=== PATIENT | male | born 1990 | race Caucasian/White ===

== ENCOUNTER 2017-12-21 20:42 | Emergency (ER) | payer OTHER ==
[2017-12-21 20:53] VITALS: PULSE 88
--- NOTE | 2017-12-21 21:20 | ED PDOC ---
HPI: Chest Pain Time Seen by Provider: 12/21/17 20:56 Chief Complaint (Nursing): Chest Pain Chief Complaint (Provider): chest pain History Per: Patient History/Exam Limitations: no limitations Onset/Duration Of Symptoms: Days (2 weeks) Current Symptoms Are (Timing): Still Present Quality: "Pain" Exacerbating Factors: Turning, Movement Additional Complaint(s): 27 y/o male presents for evaluation of left-sided chest pain x 2 weeks. Patient reports pain radiates to left shoulder blade, worse to the touch. Patient also reports difficulty taking deep breaths. Denies fever, cough, congestion, nausea/vomiting, palpitations, leg pain/swelling, recent travel. Past Medical History Reviewed: Historical Data, Nursing Documentation, Vital Signs Vital Signs: Last Vital Signs Temp 98.5 F 12/21/17 20:53 Pulse 88 12/21/17 20:53 Resp 16 12/21/17 20:53 BP 166/100 H 12/21/17 20:53 Pulse Ox 98 12/21/17 21:20 - Medical History PMH: HTN (not on meds) - Family History Family History: States: Unknown Family Hx - Social History Current smoker - smoking cessation education provided: No Alcohol: Social Drugs: Denies - Home Medications Home Medications: Ambulatory Orders Medication Instructions Recorded Ibuprofen [Motrin] 600 mg PO Q6 PRN #10 tab 08/28/14 diaZEpam [Valium] 5 mg PO BID PRN #10 tab 08/28/14 Cephalexin [Keflex] 500 mg PO TID #21 cap 01/02/15 Albuterol HFA [Ventolin HFA 90 1 puff IH BID PRN #1 unit 05/09/15 mcg/actuation (8 g)] Ibuprofen [Motrin] 600 mg PO Q6H PRN #20 tab 09/05/15 Cyclobenzaprine [Cyclobenzaprine 10 mg PO BID PRN #10 tab 04/19/16 HCl] Naproxen [Naprosyn] 500 mg PO Q12 PRN #20 tablet 04/19/16 Naproxen [Naprosyn] 500 mg PO Q12 PRN #14 tablet 12/21/17 - Allergies Allergies/Adverse Reactions: Allergies Allergy/AdvReac Type Severity Reaction Status Date / Time sunlight Allergy Severe RASH Uncoded 04/19/16 18:04 Review of Systems ROS Statement: Except As Marked, All Systems Reviewed And Found Negative Cardiovascular: Positive for: Chest Pain Respiratory: Positive for: Shortness of Breath Physical Exam - Reviewed Nursing Documentation Reviewed: Yes Vital Signs Reviewed: Yes - Physical Exam Appears: Positive for: Well, Non-toxic, No Acute Distress Head Exam: Positive for: ATRAUMATIC, NORMAL INSPECTION, NORMOCEPHALIC Skin: Positive for: Normal Color Eye Exam: Positive for: Normal appearance ENT: Positive for: Normal ENT Inspection Cardiovascular/Chest: Positive for: Regular Rate, Rhythm. Negative for: Chest Non Tender (tender to palpate left anterior chest wall) Respiratory: Positive for: Normal Breath Sounds Gastrointestinal/Abdominal: Positive for: Normal Exam Back: Positive for: Normal Inspection, Muscle Spasm (medial to left scapula tenderness) Extremity: Positive for: Normal ROM Neurologic/Psych: Positive for: Alert, Oriented - Laboratory Results Result Diagrams: 12/21/17 21:49 12/21/17 21:49 - ECG ECG: Positive for: Viewed By Me (reviewed by ED attending) ECG Rhythm: Positive for: Sinus Rhythm, Nonspecific Changes O2 Sat by Pulse Oximetry: 98 - Radiology X-Ray: Viewed By Me X-Ray Interpretation: No Acute Disease - Progress ED Course And Treament: labs, ekg, chest xray, IV toradol' On re-eval, patient states symptoms improved Patient educated on findings, discharged with rx naproxen Advised follow up PMD 2-3 days. Return precautions given Disposition - Clinical Impression Clinical Impression: Atypical chest pain - Patient ED Disposition Is Patient to be Admitted: No Counseled Patient/Family Regarding: Studies Performed, Diagnosis, Need For Followup, Rx Given - Disposition Disposition: Routine/Home Disposition Time: 23:20 Condition: IMPROVED Prescriptions: Naproxen [Naprosyn] 500 mg PO Q12 PRN #14 tablet PRN Reason: Pain, Moderate (4-7) Instructions: Chest Pain Forms: [employer] (Yi)
[2017-12-21 21:58] LABS: BASO # 0.1 K/uL (0.0-0.2); BASO % 0.6 % (0.0-2.0); EOS # 0.3 K/uL (0.0-0.7); HEMOGLOBIN 14.5 g/dL (12.0-18.0); MEAN CELL VOLUME 88.8 fl (80.0-94.0); MEAN CORPUSCULAR HEMOGLOBIN 30.1 pg (27.0-31.0); MEAN CORPUSCULAR HGB CONC 33.9 g/dL (33.0-37.0); MEAN PLATELET VOLUME 10.3 fl (7.2-11.7); MONO # 0.7 K/uL (0.0-0.8); MONO % 6.9 % (0.0-10.0); NEUT # 5.6 K/uL (1.8-7.0); NEUT % 58.5 % (50.0-75.0); NRBC % 0.1 % (0.0-0.0); RBC 4.81 Mil/uL (4.40-5.90); RED CELL DISTRIBUTION WIDTH 13.5 % (11.5-14.5); WHITE BLOOD COUNT 9.6 K/uL (4.8-10.8)
[2017-12-21 22:24] LABS: ALB/GLOB RATIO 1.3 (1.0-2.1); ALBUMIN 4.3 g/dL (3.5-5.0); CALCIUM 9.1 mg/dL (8.4-10.2); GFR AFRICAN-AMERICAN > 60; GFR NON-AFRICAN AMERICAN > 60
[2017-12-21 23:10] LABS: ALT/SGPT 63 U/L (21-72); AST/SGOT 39 U/L (17-59); BLOOD UREA NITROGEN 13 mg/dl (9-20)
[2017-12-21 23:41] VITALS: BP 137/79; RESP 15; TEMP 98; O2SAT 100
--- NOTE | 2017-12-22 08:11 | RAD ---
HISTORY: Chest pain COMPARISON: 05/09/2015 TECHNIQUE: Chest PA and lateral FINDINGS: LUNGS: No active pulmonary disease. PLEURA: No significant pleural effusion identified. No pneumothorax apparent. CARDIOVASCULAR: Normal. OSSEOUS STRUCTURES: No significant abnormalities. VISUALIZED UPPER ABDOMEN: Normal. OTHER FINDINGS: None. IMPRESSION: No active disease. No significant interval change compared to the prior examination(s).
== END 2017-12-21 23:41 | disposition home or self-care (01) ==
LOC: H.ER 20:42
DX: R07.89 Other chest pain (principal); I10 Essential (primary) hypertension

== ENCOUNTER 2018-02-17 02:09 | Emergency (ER) | payer OTHER ==
[2018-02-17 02:18] VITALS: BP 164/109; PULSE 97; RESP 16; TEMP 99.6; O2SAT 99
--- NOTE | 2018-02-17 02:40 | ED PDOC ---
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 Denies any fevers, chills, trauma, injury, pain, swelling. Has no other complaints. Past Medical History Vital Signs: Last Vital Signs Temp 99.6 F 02/17/18 02:16 Pulse 97 H 02/17/18 02:16 Resp 16 02/17/18 02:16 BP 164/109 H 02/17/18 02:16 Pulse Ox 99 02/17/18 02:40 - Medical History PMH: HTN (not on meds) Denies: Chronic Kidney Disease - Family History Family History: States: Unknown Family Hx - Home Medications Home Medications: Ambulatory Orders Medication Instructions Recorded Ibuprofen [Motrin] 600 mg PO Q6 PRN #10 tab 08/28/14 diaZEpam [Valium] 5 mg PO BID PRN #10 tab 08/28/14 Cephalexin [Keflex] 500 mg PO TID #21 cap 01/02/15 Albuterol HFA [Ventolin HFA 90 1 puff IH BID PRN #1 unit 05/09/15 mcg/actuation (8 g)] Ibuprofen [Motrin] 600 mg PO Q6H PRN #20 tab 09/05/15 Cyclobenzaprine [Cyclobenzaprine 10 mg PO BID PRN #10 tab 04/19/16 HCl] Naproxen [Naprosyn] 500 mg PO Q12 PRN #20 tablet 04/19/16 Naproxen [Naprosyn] 500 mg PO Q12 PRN #14 tablet 12/21/17 Cetirizine HCl [Zyrtec] 10 mg PO DAILY #30 capsule 02/17/18 Hydrocortisone Sendy 0.2% Cr 1 applic TOP BID #1 tube 02/17/18 [Westcort] - Allergies Allergies/Adverse Reactions: Allergies Allergy/AdvReac Type Severity Reaction Status Date / Time sunlight Allergy Severe RASH Uncoded 04/19/16 18:04 Review of Systems Constitutional: Negative for: Fever, Malaise Musculoskeletal: Negative for: Neck Pain, Shoulder Pain, Arm Pain, Hand Pain Skin: Positive for: Other (insect bites). Negative for: Rash, Lesions Physical Exam - Reviewed Vital Signs Reviewed: Yes - Physical Exam Appears: Positive for: Well, Non-toxic, No Acute Distress Skin: Positive for: Normal Color, Warm, Dry. Negative for: Rash Pulses-Radial (R): 2+ Extremity: Positive for: Normal ROM, Capillary Refill (<2sec), Other (+several insect bites to the volar aspect of the R forearm without evidence of infection) . Negative for: Tenderness, Deformity, Swelling - ECG O2 Sat by Pulse Oximetry: 99 Medical Decision Making Medical Decision Making: Patient instructed to follow-up with pmd or referral provided in 1-2 days without fail. Advised to take medication as prescribed. Return to the emergency room at any time for any new or worsening symptoms. Patient states he fully agrees with and understands discharge instructions. States that he agrees with the plan and disposition. Verbalized and repeated discharge instructions and plan. I have given the patient opportunity to ask any additional questions. Disposition - Clinical Impression Clinical Impression: Insect bite - Patient ED Disposition Is Patient to be Admitted: No Counseled Patient/Family Regarding: Diagnosis, Need For Followup, Rx Given - Disposition Referrals: Juan Hernández MD [Staff Provider] - Disposition: Routine/Home Disposition Time: 02:30 Condition: STABLE Additional Instructions: Thank you for letting us take care of you today. You were treated for insect bites. The emergency medical care you received today was directed towards the acute presenting symptoms. If you were prescribed any medication, please fill it and give as directed. It may take several days for your symptoms to resolve. Return to the Emergency Department at any time if symptoms worsen, do not improve, or if any other problems arise. Please contact your doctor in 2 days for re-evaluation and follow up / or call one of the physicians/clinics you have been referred to that are listed on the Patient Visit Information form that is included in your discharge packet. Bring any paperwork you were given at discharge with you along with any medications to your follow up visit. Our treatment cannot replace ongoing medical care by a primary care provider (PCP) outside of the emergency department. Thank you for allowing the [facility] team to be part of your care today. Prescriptions: Cetirizine HCl [Zyrtec] 10 mg PO DAILY #30 capsule Hydrocortisone Sendy 0.2% Cr [Westcort] 1 applic TOP BID #1 tube Instructions: Insect Bites and Stings (DC) Forms: [employer] ([place] Citizen), [facility] ED School/Work Excuse - PA / CERTIFIED PATHOLOGY ASSISTANT / Resident Statement MD/DO has reviewed & agrees with the documentation as recorded.
== END 2018-02-17 02:46 | disposition home or self-care (01) ==
LOC: H.ER 02:09
DX: S50.861A Insect bite (nonvenomous) of right forearm, initial encounter (principal); W57.XXXA Bitten or stung by nonvenomous insect and other nonvenomous arthropods, initial encounter; I10 Essential (primary) hypertension

== ENCOUNTER 2018-03-09 01:30 | Inpatient (IN) | payer MEDICAID, OTHER ==
[2018-03-09] MEDS ORDERED: Iohexol 240 (50 ml) PO ONE (01:59)
[2018-03-09] MEDS ORDERED: Iohexol 240 (50 ml) ONE (02:07)
--- NOTE | 2018-03-09 02:15 | ED PDOC ---
HPI: Abdomen Time Seen by Provider: 03/09/18 01:52 Chief Complaint (Nursing): Abdominal Pain Chief Complaint (Provider): Abdominal Pain History Per: Patient Onset/Duration Of Symptoms: Days (x1) Current Symptoms Are (Timing): Still Present Location Of Pain/Discomfort: Diffuse Associated Symptoms: Fever. denies: Vomiting Additional Complaint(s): 27 y/o male with a PMHx of HTN and pre-diabetes presents to the ED complaining of abdominal pain, onset 1 day ago. Patient reports of taking laxatives and [id number] gas medication with no relief. Patient states abdominal pain is diffuse and associated with nausea and fever. Denies vomiting. PMD: [place]Amir Past Medical History Reviewed: Historical Data, Nursing Documentation, Vital Signs Vital Signs: Last Vital Signs Temp 100 F H 03/09/18 05:55 Pulse 99 H 03/09/18 06:31 Resp 17 03/09/18 06:31 BP 172/99 H 03/09/18 06:31 Pulse Ox 99 03/09/18 06:31 - Medical History PMH: Diabetes (pre), HTN (not on meds) Denies: Chronic Kidney Disease - Surgical History Surgical History: No Surg Hx - Family History Family History: States: Unknown Family Hx - Home Medications Home Medications: Ambulatory Orders Medication Instructions Recorded Unobtainable 03/09/18 - Allergies Allergies/Adverse Reactions: Allergies Allergy/AdvReac Type Severity Reaction Status Date / Time sunlight Allergy Severe RASH Uncoded 04/19/16 18:04 Review of Systems ROS Statement: Except As Marked, All Systems Reviewed And Found Negative Constitutional: Positive for: Fever Gastrointestinal: Positive for: Nausea, Abdominal Pain. Negative for: Vomiting Physical Exam - Reviewed Nursing Documentation Reviewed: Yes Vital Signs Reviewed: Yes - Physical Exam Appears: Positive for: Uncomfortable Head Exam: Positive for: ATRAUMATIC, NORMOCEPHALIC Skin: Positive for: Normal Color, Warm, Dry Eye Exam: Positive for: Conjunctival injection (bilaterally) Neck: Positive for: Normal, Painless ROM Cardiovascular/Chest: Positive for: Tachycardia Respiratory: Positive for: Normal Breath Sounds. Negative for: Respiratory Distress Gastrointestinal/Abdominal: Positive for: Normal Exam, Soft, Tenderness ( diffuse abdominal tenderenss) Extremity: Positive for: Normal ROM. Negative for: Deformity Neurologic/Psych: Positive for: Alert, Oriented. Negative for: Motor/Sensory Deficits - Laboratory Results Result Diagrams: 03/09/18 02:15 03/09/18 02:15 - ECG O2 Sat by Pulse Oximetry: 99 (RA) Pulse Ox Interpretation: Normal Medical Decision Making Medical Decision Making: Time: 218 Impression: 27 y/o male with abdominal pain Plan: -- CT Abd/Pelvis PO & IV Contrast -- CMP -- Lact Acid, Plasma -- Lipase -- CXR Portable -- Morphine 6 mg IVP -- Iohexol 50 ml PO -- Pepcid 20 mg IVP -- Zofran Inj 4 mg IVP -- Blood Culture -- Heplock Insertion -- Urinalysis Time: 050 CT RESULTS FINDINGS: Lung bases: There is a LEFT lung base subpleural nodule. ABDOMEN: Liver: There is a nonspecific 11 mm hyperdensity within the RIGHT hepatic lobe, incompletely evaluated on current exam. There is a diffuse decrease in hepatic parenchymal density, consistent with fatty infiltration. Gallbladder and bile ducts: The gallbladder is normal. There is no evidence of biliary ductal dilation. No calcified stones. Pancreas: The pancreas appears normal. No ductal dilation. Spleen: The spleen is normal. Adrenals: The adrenal glands are normal. Kidneys and ureters: Normal. No solid mass. No hydronephrosis. Stomach and bowel: There is thickening of the sigmoid colon with marked surrounding inflammatory stranding compatible with acute sigmoid diverticulitis. The stomach is normal. The duodenum is unremarkable. No obstruction. PELVIS: Appendix: No findings to suggest acute appendicitis. Bladder: The bladder is normal. Reproductive: Unremarkable as visualized. ABDOMEN and PELVIS: Intraperitoneal space: There is a small amount of free pelvic fluid present. No free air. Bones/joints: No acute fracture. No dislocation. Soft tissues: Normal. Vasculature: Normal. No abdominal aortic aneurysm. Lymph nodes: Normal. No enlarged lymph nodes. IMPRESSION: 1. There is thickening of the sigmoid colon with marked surrounding inflammatory stranding compatible with acute sigmoid diverticulitis. As an underlying malignancy cannot be entirely excluded, a follow-up examination after a course of treatment is recommended. 2. There is a nonspecific 11 mm hyperdensity within the RIGHT hepatic lobe, incompletely evaluated on current exam. This may represent a benign hemangioma however other etiologies are possible. Thank you for allowing us to participate in the care of your patient. Dictated and Authenticated by: Michael Rajan MD 03/09/2018 5:09 AM Eastern Time ([place] & [place]) Time: 522 -- Patient will be admitted with a diagnosis of acute diverticulitis. Patient referred to Dr. Peoples for Dr. Souza. Additional doses of Cipro and flagyl given for symptom relief. -- Cipro 400 in 200 ml IV -- Flagyl 500 mg/100 ml NS 100 ml IVPB Time: 608 -- Spoke with Dr. Peoples who is unavailable. Patient will be admitted under the hospitalist, Dr. Romano. ___ Scribe Attestation: Documented by Brett Aguillon acting as a scribe for Cristobal Hagan MD. Provider Scribe Attestation: All medical record entries made by the Scribe were at my direction and personally dictated by me. I have reviewed the chart and agree that the record accurately reflects my personal performance of the history, physical exam, medical decision making, and the department course for this patient. I have also personally directed, reviewed, and agree with the discharge instructions and disposition. Disposition - Clinical Impression Clinical Impression: Diverticulitis - Patient ED Disposition Is Patient to be Admitted: Yes Discussed With DrLawanda: Aston Romano Counseled Patient/Family Regarding: Studies Performed, Diagnosis - Disposition Disposition Time: 05:00 Condition: FAIR
[2018-03-09 02:28] LABS: BASO # 0.1 K/uL (0.0-0.2); BASO % 0.6 % (0.0-2.0); EOS # 0.3 K/uL (0.0-0.7); EOS % 1.8 % (0.0-4.0); HEMOGLOBIN 14.5 g/dL (12.0-18.0); LYMPH # 2.5 K/uL (1.0-4.3); LYMPH % 17.4 % (20.0-40.0); MEAN CELL VOLUME 87.4 fl (80.0-94.0); MEAN CORPUSCULAR HEMOGLOBIN 29.4 pg (27.0-31.0); MEAN CORPUSCULAR HGB CONC 33.7 g/dL (33.0-37.0); MEAN PLATELET VOLUME 9.9 fl (7.2-11.7); MONO # 0.8 K/uL (0.0-0.8); MONO % 5.6 % (0.0-10.0); NEUT # 10.7 K/uL (1.8-7.0); NEUT % 74.6 % (50.0-75.0); RBC 4.92 Mil/uL (4.40-5.90); WHITE BLOOD COUNT 14.4 K/uL (4.8-10.8)
[2018-03-09 02:41] LABS: ALB/GLOB RATIO 1.5 (1.0-2.1); ALBUMIN 4.5 g/dL (3.5-5.0); ALT/SGPT 56 U/L (21-72); AST/SGOT 22 U/L (17-59); BLOOD UREA NITROGEN 13 mg/dl (9-20); CALCIUM 9.6 mg/dL (8.4-10.2); GFR NON-AFRICAN AMERICAN > 60; LIPASE 37 U/L (23-300)
[2018-03-09 03:55] LABS: URINE BILIRUBIN NEGATIVE (NEGATIVE); URINE BLOOD SMALL (NEGATIVE); URINE CLARITY CLEAR (Clear); URINE COLOR YELLOW (YELLOW); URINE GLUCOSE (UA) NEG (Normal); URINE LEUKOCYTE ESTERASE NEG Leu/uL (Negative); URINE PROTEIN NEGATIVE (NEGATIVE); URINE UROBILINOGEN 0.2-1.0 mg/dL (0.2-1.0)
[2018-03-09] MEDS ORDERED: Iohexol 300 100 ML IJ ONE (04:31)
[2018-03-09] MEDS ORDERED: Sodium Chloride 0.9% 50 ML IV ONE (04:31)
[2018-03-09] MEDS ORDERED: Ciprofloxacin 400mg/200ml D5W 400 MG/200 ML BAG IV STA (05:15)
[2018-03-09] MEDS ORDERED: metroNIDAZOLE 500mg/100ml NS 100 ML IVPB STA (05:15)
[2018-03-09] MEDS ORDERED: Enalaprilat 2.5 MG/2 ML IVP ONE (05:43)
[2018-03-09] MEDS ORDERED: EnalaprilAT 1.25 mg/ml Inj ONE ×2 (05:46→05:48)
[2018-03-09] MEDS ORDERED: HYDROmorphone 0.5 mg/0.5 ml ISec IVP PRN (06:52)
[2018-03-09] MEDS ORDERED: metroNIDAZOLE 500mg/100ml NS 100 ML IVPB ONE (06:57)
--- NOTE | 2018-03-09 08:40 | RAD ---
Date of service: 03/09/2018 HISTORY: chest pain COMPARISON: 12/21/2017. FINDINGS: LUNGS: The lungs are well inflated and clear. PLEURA: No significant pleural effusion identified, no pneumothorax apparent. CARDIOVASCULAR: Normal. OSSEOUS STRUCTURES: No significant abnormalities. VISUALIZED UPPER ABDOMEN: Normal. OTHER FINDINGS: None. IMPRESSION: No active pulmonary disease.
[2018-03-09] MEDS ORDERED: Pantoprazole 40 MG in Sodium Chloride 0.9% 100 ML IVPB SCH (09:00)
[2018-03-09] MEDS ORDERED: Pneumococcal 23-Valent Vaccine IM ONE (09:58)
--- NOTE | 2018-03-09 10:41 | CT ---
PROCEDURE: CT Abdomen and Pelvis with oral and IV contrast. HISTORY: abd pain COMPARISON: None available. TECHNIQUE: Contiguous axial images of the abdomen and pelvis. Oral and IV contrast was administered. Coronal and Sagittal reformats generated and reviewed. Contrast dose: 95 mL Omnipaque 300 Radiation dose: Total exam DLP = 507.27 mGy-cm. This CT exam was performed using one or more of the following dose reduction techniques: Automated exposure control, adjustment of the mA and/or kV according to patient size, and/or use of iterative reconstruction technique. FINDINGS: LOWER THORAX: No visible consolidation, pleural effusion, or pneumothorax. 2 mm left lung base subpleural nodule. LIVER: 11 mm nonspecific hyperdense lesion within the right hepatic lobe Hypoattenuation of the liver compatible with hepatic steatosis. GALLBLADDER AND BILE DUCTS: Unremarkable. PANCREAS: Unremarkable. SPLEEN: Unremarkable. ADRENALS: Unremarkable. KIDNEYS AND URETERS: The kidneys enhance symmetrically. No hydronephrosis or obstructing renal calculus. BLADDER: The urinary bladder appears unremarkable. REPRODUCTIVE: Unremarkable. APPENDIX: No secondary signs of acute appendicitis. BOWEL: The stomach is nondistended. The bowel loops appear within normal limits of caliber without evidence of intestinal obstruction. Wall thickening of the sigmoid colon with associated inflammatory stranding consistent with acute diverticulitis. PERITONEUM: Small pelvic free fluid. No definite free air. LYMPH NODES: No bulky lymphadenopathy identified. VASCULATURE: No aortic aneurysm. BONES: No acute osseous abnormality is detected. OTHER FINDINGS: None. IMPRESSION: Findings consistent with acute diverticulitis of the sigmoid colon. Underlying malignancy cannot be entirely clinical correlation isodense indicated. Nonspecific 11 mm hyperdense lesion incompletely characterized. While this finding may reflect a benign hemangioma, alternative etiologies are not excluded. Preliminary impression was provided by virtual radiologic.
--- NOTE | 2018-03-09 11:34 | CP.PCM.CON ---
History of Present Illness - History of Present Illness History of Present Illness: 27 yo male with acute onset yesterday of constipation and left lower abdominal pain. Patient with no prior h/o GI disease. No prior change in bowel habits. Review of Systems - Constitutional Constitutional: absent: Chills - EENT Eyes: absent: Blurred Vision Ears: absent: Decreased Hearing Nose/Mouth/Throat: absent: Epistaxis - Cardiovascular Cardiovascular: absent: Chest Pain - Respiratory Respiratory: absent: Cough - Gastrointestinal Gastrointestinal: As Per HPI - Genitourinary Genitourinary: absent: Change in Urinary Stream Past Patient History - Past Medical History & Family History Past Medical History?: Yes - Past Social History Smoking Status: Current Some Days Smoker - CARDIAC Hx Cardiac Disorders: Yes Hx Hypertension: Yes - PULMONARY Hx Respiratory Disorders: No - NEUROLOGICAL Hx Neurological Disorder: No - HEENT Hx HEENT Problems: No - RENAL Hx Chronic Kidney Disease: No - ENDOCRINE/METABOLIC Hx Endocrine Disorders: Yes Hx Diabetes Mellitus Type 2: Yes (Pre-diabetic) - HEMATOLOGICAL/ONCOLOGICAL Hx Blood Disorders: No Hx AIDS: No Hx Human Immunodeficiency Virus (HIV): No - INTEGUMENTARY Hx Dermatological Problems: Yes Hx Basil Cell: Yes Other/Comment: hx skin cancer - MUSCULOSKELETAL/RHEUMATOLOGICAL Hx Musculoskeletal Disorders: No Hx Falls: No - GASTROINTESTINAL Hx Gastrointestinal Disorders: No - GENITOURINARY/GYNECOLOGICAL Hx Genitourinary Disorders: No - PSYCHIATRIC Hx Psychophysiologic Disorder: No Hx Substance Use: No - SURGICAL HISTORY Hx Surgeries: Yes (several ST skin CA) - ANESTHESIA Hx Anesthesia: Yes Hx Anesthesia Reactions: No Hx Malignant Hyperthermia: No Meds Allergies/Adverse Reactions: Allergies Allergy/AdvReac Type Severity Reaction Status Date / Time sunlight Allergy Severe RASH Uncoded 04/19/16 18:04 - Medications Medications: Current Medications Acetaminophen (Tylenol 325mg Tab) 650 mg PO Q4 PRN PRN Reason: Fever >100.4 F Hydromorphone HCl (Dilaudid) 1 mg IVP Q4 PRN PRN Reason: Pain, severe (8-10) Last Admin: 03/09/18 07:04 Dose: 1 mg Ciprofloxacin (Cipro 400mg/200ml Dsw) 400 mg in 200 mls @ 200 mls/hr IVPB Q12H CESAR PRN Reason: Protocol Metronidazole (Flagyl 500mg/100ml Ns) 100 mls @ 100 mls/hr IVPB Q12 CESAR PRN Reason: Protocol Ondansetron HCl (Zofran Inj) 4 mg IVP Q4 PRN PRN Reason: Nausea/Vomiting Last Admin: 03/09/18 07:04 Dose: 4 mg Pantoprazole Sodium (Protonix Inj) 40 mg IVP DAILY [facility] Last Admin: 03/09/18 09:14 Dose: 40 mg Physical Exam - Constitutional Appears: No Acute Distress - Head Exam Head Exam: ATRAUMATIC - Eye Exam Eye Exam: Normal appearance - ENT Exam ENT Exam: Mucous Membranes Moist - Neck Exam Neck exam: Positive for: Normal Inspection - Respiratory Exam Respiratory Exam: Clear to Auscultation Bilateral - Cardiovascular Exam Cardiovascular Exam: REGULAR RHYTHM, +S1, +S2 - GI/Abdominal Exam GI & Abdominal Exam: Soft, Tenderness Additional comments: LLQ with guarding Results - Vital Signs Recent Vital Signs: Last Vital Signs Temp 99.3 F 03/09/18 09:30 Pulse 87 03/09/18 09:30 Resp 17 03/09/18 09:52 BP 136/83 03/09/18 09:30 Pulse Ox 98 03/09/18 09:30 - Labs Result Diagrams: 03/09/18 02:15 03/09/18 02:15 Labs: Laboratory Results - last 24 hr 03/09/18 03/09/18 03/09/18 02:15 02:15 02:15 WBC 14.4 H RBC 4.92 Hgb 14.5 Hct 43.0 MCV 87.4 MCH 29.4 MCHC 33.7 RDW 14.0 Plt Count 204 MPV 9.9 Neut % (Auto) 74.6 Lymph % (Auto) 17.4 L [place] % (Auto) 5.6 Eos % (Auto) 1.8 Baso % (Auto) 0.6 Neut # (Auto) 10.7 H Lymph # (Auto) 2.5 [place] # (Auto) 0.8 Eos # (Auto) 0.3 Baso # (Auto) 0.1 Sodium 140 Potassium 3.5 L Chloride 102 Carbon Dioxide 26 Anion Gap 16 BUN 13 Creatinine 0.8 Est GFR ( Amer) > 60 Est GFR (Non-Af Amer) > 60 Random Glucose 106 Lactic Acid 0.7 Calcium 9.6 Total Bilirubin 0.7 AST 22 ALT 56 Alkaline Phosphatase 62 Total Protein 7.6 Albumin 4.5 Globulin 3.1 Albumin/Globulin Ratio 1.5 Lipase 37 Urine Color Urine Clarity Urine pH Ur Specific [place] Urine Protein Urine Glucose (UA) Urine Ketones Urine Blood Urine Nitrate Urine Bilirubin Urine Urobilinogen Ur Leukocyte Esterase Urine RBC (Auto) Urine Microscopic WBC 03/09/18 03:30 WBC RBC Hgb Hct MCV MCH MCHC RDW Plt Count MPV Neut % (Auto) Lymph % (Auto) [place] % (Auto) Eos % (Auto) Baso % (Auto) Neut # (Auto) Lymph # (Auto) [place] # (Auto) Eos # (Auto) Baso # (Auto) Sodium Potassium Chloride Carbon Dioxide Anion Gap BUN Creatinine Est GFR ( Amer) Est GFR (Non-Af Amer) Random Glucose Lactic Acid Calcium Total Bilirubin AST ALT Alkaline Phosphatase Total Protein Albumin Globulin Albumin/Globulin Ratio Lipase Urine Color Yellow Urine Clarity Clear Urine pH 6.0 Ur Specific [place] 1.009 Urine Protein Negative Urine Glucose (UA) Neg Urine Ketones Negative Urine Blood Small Urine Nitrate Negative Urine Bilirubin Negative Urine Urobilinogen 0.2-1.0 Ur Leukocyte Esterase Neg Urine RBC (Auto) 3 Urine Microscopic WBC 3 Assessment & Plan (1) Diverticulitis Assessment and Plan: Patient presenting with acute diverticulitis. Continue IV abx. Colonscopy in 2 months. Liver lesion nonspecific and LFTs normal. Abdominal sono in 3 months for surveillance. Status: Acute
[2018-03-09] MEDS: Ciprofloxacin 400mg/200ml D5W 400 MG/200 ML BAG IVPB SCH (17:14)
[2018-03-09] MEDS: metroNIDAZOLE 500mg/100ml NS 100 ML IVPB SCH (17:14)
--- NOTE | 2018-03-09 19:49 | HP ---
Copied To: Aston Romano MD Attending MD: Aston Romano MD HISTORY OF PRESENT ILLNESS: Mr. Manzano is a 27-year-old male who was admitted via the emergency room because of severe abdominal pain, nausea and inability to move his bowels for the past 24 hours. He was seen in the emergency room and had a workup, which indicated diverticular disease. He was therefore admitted to the floor after he received analgesics for pain and anti-nausea medications. PAST MEDICAL HISTORY: He has a past medical history of prediabetes, hypertension and at present. FAMILY HISTORY: Noncontributory. SOCIAL HISTORY: He does not drink or smoke and works as a information security engineer. ALLERGIES: HE HAS ALLERGIES TO THE SUN AND TRIES TO AVOID MUCH POSSIBLE. PHYSICAL EXAMINATION: GENERAL: The patient is alert, oriented, appears to be in moderate distress because of abdominal pain. VITAL SIGNS: Blood pressure of 172/99 with a pulse of 99, respiratory rate 17, temperature of 100 degrees Fahrenheit. SKIN: Shows fair turgor. HEENT: Pupils are equal and reactive to light and accommodation. Mouth shows fair hygiene. LUNGS: Clear. HEART: Regular. No murmurs or gallops. ABDOMEN: Diffuse tenderness. No organomegaly. Normoactive bowel sounds. EXTREMITIES: Show no edema or cyanosis. GENITAL AND RECTAL: Deferred. CENTRAL NERVOUS SYSTEM: Grossly intact. LABORATORY DATA: WBC 14.4, hemoglobin 14.5, platelet count 209,000. Sodium 140, potassium 3.5, BUN 13, creatinine 0.9, serum glucose 106. CAT scan of the abdomen is remarkable for thickening of the sigmoid colon with mild surrounding inflammatory stranding compatible with acute sigmoid diverticulitis, nonspecific 11 mm hypodensity with right hepatic lobe, incompletely evacuated on current exam. This may represent benign hemangioma. IMPRESSION: Abdominal pain probably secondary to diverticular disease, hemangioma of the liver, history of hypertension, history of prediabetes. PLAN: IV hydration, keep the patient with clear liquids by mouth, IV Protonix, Gastroenterology evaluation already requested. We would continue therapy as ordered. Further therapy will depend on findings. Aston Romano MD
[2018-03-09] MEDS: Lubricant Eye Drops UD OU PRN (23:40)
[2018-03-10] MEDS: metroNIDAZOLE 500mg/100ml NS 100 ML IVPB SCH ×2 (04:42→16:58)
[2018-03-10] MEDS: Ciprofloxacin 400mg/200ml D5W 400 MG/200 ML BAG IVPB SCH ×2 (06:13→18:06)
[2018-03-10 06:32] LABS: HEMOGLOBIN 14.2 g/dL (12.0-18.0); MEAN CORPUSCULAR HEMOGLOBIN 29.6 pg (27.0-31.0); MEAN CORPUSCULAR HGB CONC 33.7 g/dL (33.0-37.0); RBC 4.78 Mil/uL (4.40-5.90); RED CELL DISTRIBUTION WIDTH 13.6 % (11.5-14.5); WHITE BLOOD COUNT 11.3 K/uL (4.8-10.8)
[2018-03-10 06:46] LABS: BLOOD UREA NITROGEN 9 mg/dl (9-20); CALCIUM 8.9 mg/dL (8.4-10.2); GFR NON-AFRICAN AMERICAN > 60
--- NOTE | 2018-03-10 10:41 | CP.PCM.PN ---
Subjective - Date & Time of Evaluation Date of Evaluation: 03/10/18 Time of Evaluation: 09:20 - Subjective Subjective: GI progress note for Dr. Bush Pt seen and examined at bedside this AM. No adverse events overnight. Patient states that abdominal pain is improved and he is hungry Objective - Vital Signs/Intake and Output Vital Signs (last 24 hours): Temp Pulse Resp BP Pulse Ox 98 F 81 20 138/76 97 03/10/18 08:17 03/10/18 08:41 03/10/18 08:17 03/10/18 08:41 03/10/18 08:17 - Medications Medications: Current Medications Acetaminophen (Tylenol 325mg Tab) 650 mg PO Q4 PRN PRN Reason: Fever >100.4 F Acetaminophen (Tylenol 325mg Tab) 650 mg PO Q4 PRN PRN Reason: Pain, Mild (1-3) Last Admin: 03/09/18 15:39 Dose: 650 mg Artificial Tears (Refresh Opth Soln) 0.3 ml OU TID PRN PRN Reason: Dry eyes Last Admin: 03/09/18 23:40 Dose: 0.3 ml Hydromorphone HCl (Dilaudid) 1 mg IVP Q4 PRN PRN Reason: Pain, severe (8-10) Last Admin: 03/09/18 12:14 Dose: 1 mg Ciprofloxacin (Cipro 400mg/200ml Dsw) 400 mg in 200 mls @ 200 mls/hr IVPB Q12H CESAR PRN Reason: Protocol Last Admin: 03/10/18 06:13 Dose: 200 mls/hr Metronidazole (Flagyl 500mg/100ml Ns) 100 mls @ 100 mls/hr IVPB Q12H CESAR PRN Reason: Protocol Last Admin: 03/10/18 04:42 Dose: 100 mls/hr Metoprolol Tartrate (Lopressor) 50 mg PO DAILY [facility] Last Admin: 03/10/18 08:41 Dose: 50 mg Ondansetron HCl (Zofran Inj) 4 mg IVP Q4 PRN PRN Reason: Nausea/Vomiting Last Admin: 03/09/18 15:40 Dose: 4 mg Pantoprazole Sodium (Protonix Inj) 40 mg IVP DAILY [facility] Last Admin: 03/10/18 08:41 Dose: 40 mg - Labs Labs: 03/10/18 05:55 03/10/18 05:55 - Constitutional Appears: Well, Non-toxic, No Acute Distress - Head Exam Head Exam: ATRAUMATIC, NORMOCEPHALIC - Eye Exam Eye Exam: Normal appearance. absent: Conjunctival injection, Scleral icterus - ENT Exam ENT Exam: Mucous Membranes Moist, Normal Oropharynx - Respiratory Exam Respiratory Exam: NORMAL BREATHING PATTERN. absent: Accessory Muscle Use, Respiratory Distress - GI/Abdominal Exam GI & Abdominal Exam: Soft, Tenderness (LLQ and suprapubic moderate pain). absent: Distended - Neurological Exam Neurological Exam: Alert, Awake, Oriented x3 - Psychiatric Exam Psychiatric exam: Normal Affect, Normal Mood - Skin Skin Exam: Dry, Intact, Normal Color, Warm Assessment and Plan - Assessment and Plan (Free Text) Assessment: 27M acute diverticulitis of the sigmoid colon Plan: Advance patient's diet as tolerated to bland, low fiber, low fat, lactose free diet for 2 months Continue antibiotics Patient should follow up with Dr. Bush in his office to plan for colonoscopy in 2 months High fiber diet in the future when the acute inflammation is resolved Discussed and examined with Dr. Eleazar Unger, PGY2
--- NOTE | 2018-03-10 11:12 | CP.PCM.PN ---
Subjective - Date & Time of Evaluation Date of Evaluation: 03/10/18 Time of Evaluation: 11:13 - Subjective Subjective: STILL HAS MILD ABDOMINAL PAINS BUT NAUSEA LESS NO VOMITING OR DIARRHEA CASE DISCUSSED WITH PT AND HIS FIANCE--HE UNDERSTANDS NEED FOR GI FOLLOWUP AND COLONOSCOPY OUT PT Objective - Vital Signs/Intake and Output Vital Signs (last 24 hours): Temp Pulse Resp BP Pulse Ox 98 F 81 20 138/76 97 03/10/18 08:17 03/10/18 08:41 03/10/18 08:17 03/10/18 08:41 03/10/18 08:17 - Medications Medications: Current Medications Acetaminophen (Tylenol 325mg Tab) 650 mg PO Q4 PRN PRN Reason: Fever >100.4 F Acetaminophen (Tylenol 325mg Tab) 650 mg PO Q4 PRN PRN Reason: Pain, Mild (1-3) Last Admin: 03/09/18 15:39 Dose: 650 mg Artificial Tears (Refresh Opth Soln) 0.3 ml OU TID PRN PRN Reason: Dry eyes Last Admin: 03/09/18 23:40 Dose: 0.3 ml Hydromorphone HCl (Dilaudid) 1 mg IVP Q4 PRN PRN Reason: Pain, severe (8-10) Last Admin: 03/09/18 12:14 Dose: 1 mg Ciprofloxacin (Cipro 400mg/200ml Dsw) 400 mg in 200 mls @ 200 mls/hr IVPB Q12H CESAR PRN Reason: Protocol Last Admin: 03/10/18 06:13 Dose: 200 mls/hr Metronidazole (Flagyl 500mg/100ml Ns) 100 mls @ 100 mls/hr IVPB Q12H CESAR PRN Reason: Protocol Last Admin: 03/10/18 04:42 Dose: 100 mls/hr Metoprolol Tartrate (Lopressor) 50 mg PO DAILY [facility] Last Admin: 03/10/18 08:41 Dose: 50 mg Ondansetron HCl (Zofran Inj) 4 mg IVP Q4 PRN PRN Reason: Nausea/Vomiting Last Admin: 03/09/18 15:40 Dose: 4 mg Pantoprazole Sodium (Protonix Inj) 40 mg IVP DAILY [facility] Last Admin: 03/10/18 08:41 Dose: 40 mg - Labs Labs: 03/10/18 05:55 03/10/18 05:55 - Constitutional Appears: No Acute Distress - Head Exam Head Exam: ATRAUMATIC, NORMAL INSPECTION, NORMOCEPHALIC - Eye Exam Eye Exam: EOMI, Normal appearance, PERRL Pupil Exam: NORMAL ACCOMODATION, PERRL - ENT Exam ENT Exam: Mucous Membranes Moist, Normal Exam - Neck Exam Neck Exam: Full ROM, Normal Inspection. absent: Lymphadenopathy - Respiratory Exam Respiratory Exam: Clear to Ausculation Bilateral, NORMAL BREATHING PATTERN - Cardiovascular Exam Cardiovascular Exam: REGULAR RHYTHM, +S1, +S2. absent: Murmur - GI/Abdominal Exam GI & Abdominal Exam: Soft, Tenderness, Normal Bowel Sounds - Rectal Exam Rectal Exam: NORMAL INSPECTION - Extremities Exam Extremities Exam: Full ROM, Normal Capillary Refill, Normal Inspection. absent : Joint Swelling, Pedal Edema - Back Exam Back Exam: NORMAL INSPECTION - Neurological Exam Neurological Exam: Alert, Awake, CN II-XII Intact, Normal Gait, Oriented x3 - Psychiatric Exam Psychiatric exam: Normal Affect, Normal Mood - Skin Skin Exam: Dry, Intact, Normal Color, Warm Assessment and Plan - Assessment and Plan (Free Text) Assessment: ACUTE DIVERTICULITIS HTN SKIN RASH--CHRONIC Plan: ADVANCE DIET CONTINUE ANTIBIOTIC RX D/C IN AM IF STABLE
[2018-03-10] MEDS: Lubricant Eye Drops UD OU PRN (18:22)
[2018-03-11] MEDS: metroNIDAZOLE 500mg/100ml NS 100 ML IVPB SCH (04:41)
[2018-03-11] MEDS: Ciprofloxacin 400mg/200ml D5W 400 MG/200 ML BAG IVPB SCH (05:50)
[2018-03-11 08:34] VITALS: PULSE 74; RESP 20; TEMP 98.5; O2SAT 96
[2018-03-11 09:26] VITALS: BP 112/73
--- NOTE | 2018-03-11 10:01 | CP.PCM.DIS ---
Provider - Provider Date of Admission: 03/09/18 05:18 Attending physician: Aston Romano MD Primary care physician: Sugey Souza MD Time Spent in preparation of Discharge (in minutes): 35 Diagnosis - Discharge Diagnosis (1) Hypertension Status: Acute (2) Diverticulitis Status: Acute Hospital Course - Lab Results Lab Results: Micro Results 03/09/18 02:15 Blood Blood Culture - Preliminary NO GROWTH AFTER 48 HOURS Most Recent Lab Values WBC 11.3 K/uL (4.8-10.8) H 03/10/18 05:55 RBC 4.78 Mil/uL (4.40-5.90) 03/10/18 05:55 Hgb 14.2 g/dL (12.0-18.0) 03/10/18 05:55 Hct 42.1 % (35.0-51.0) 03/10/18 05:55 MCV 88.0 fl (80.0-94.0) 03/10/18 05:55 MCH 29.6 pg (27.0-31.0) 03/10/18 05:55 MCHC 33.7 g/dL (33.0-37.0) 03/10/18 05:55 RDW 13.6 % (11.5-14.5) 03/10/18 05:55 Plt Count 208 K/uL (130-400) 03/10/18 05:55 MPV 9.9 fl (7.2-11.7) 03/09/18 02:15 Neut % (Auto) 74.6 % (50.0-75.0) 03/09/18 02:15 Lymph % (Auto) 17.4 % (20.0-40.0) L 03/09/18 02:15 Hickman % (Auto) 5.6 % (0.0-10.0) 03/09/18 02:15 Eos % (Auto) 1.8 % (0.0-4.0) 03/09/18 02:15 Baso % (Auto) 0.6 % (0.0-2.0) 03/09/18 02:15 Neut # (Auto) 10.7 K/uL (1.8-7.0) H 03/09/18 02:15 Lymph # (Auto) 2.5 K/uL (1.0-4.3) 03/09/18 02:15 Hickman # (Auto) 0.8 K/uL (0.0-0.8) 03/09/18 02:15 Eos # (Auto) 0.3 K/uL (0.0-0.7) 03/09/18 02:15 Baso # (Auto) 0.1 K/uL (0.0-0.2) 03/09/18 02:15 Sodium 140 mmol/l (132-148) 03/10/18 05:55 Potassium 3.9 MMOL/L (3.6-5.0) 03/10/18 05:55 Chloride 102 mmol/L (98-107) 03/10/18 05:55 Carbon Dioxide 32 mmol/L (22-30) H 03/10/18 05:55 Anion Gap 10 (10-20) 03/10/18 05:55 BUN 9 mg/dl (9-20) 03/10/18 05:55 Creatinine 1.0 mg/dl (0.8-1.5) 03/10/18 05:55 Est GFR ( Amer) > 60 03/10/18 05:55 Est GFR (Non-Af Amer) > 60 03/10/18 05:55 Random Glucose 106 mg/dL (75-110) 03/10/18 05:55 Lactic Acid 0.7 MMOL/L (0.7-2.1) 03/09/18 02:15 Calcium 8.9 mg/dL (8.4-10.2) 03/10/18 05:55 Total Bilirubin 0.7 mg/dl (0.2-1.3) 03/09/18 02:15 AST 22 U/L (17-59) 03/09/18 02:15 ALT 56 U/L (21-72) 03/09/18 02:15 Alkaline Phosphatase 62 U/L (38-126) 03/09/18 02:15 Total Protein 7.6 G/DL (6.3-8.2) 03/09/18 02:15 Albumin 4.5 g/dL (3.5-5.0) 03/09/18 02:15 Globulin 3.1 gm/dL (2.2-3.9) 03/09/18 02:15 Albumin/Globulin Ratio 1.5 (1.0-2.1) 03/09/18 02:15 Lipase 37 U/L (23-300) 03/09/18 02:15 Urine Color Yellow (YELLOW) 03/09/18 03:30 Urine Clarity Clear (Clear) 03/09/18 03:30 Urine pH 6.0 (5.0-8.0) 03/09/18 03:30 Ur Specific Hubbell 1.009 (1.003-1.030) 03/09/18 03:30 Urine Protein Negative mg/dL (NEGATIVE) 03/09/18 03:30 Urine Glucose (UA) Neg mg/dL (Normal) 03/09/18 03:30 Urine Ketones Negative mg/dL (NEGATIVE) 03/09/18 03:30 Urine Blood Small (NEGATIVE) 03/09/18 03:30 Urine Nitrate Negative (NEGATIVE) 03/09/18 03:30 Urine Bilirubin Negative (NEGATIVE) 03/09/18 03:30 Urine Urobilinogen 0.2-1.0 mg/dL (0.2-1.0) 03/09/18 03:30 Ur Leukocyte Esterase Neg Ketan/uL (Negative) 03/09/18 03:30 Urine RBC (Auto) 3 /hpf (0-3) 03/09/18 03:30 Urine Microscopic WBC 3 /hpf (0-5) 03/09/18 03:30 - Hospital Course Hospital Course: abdominal pain resolved Discharge Exam - Head Exam Head Exam: ATRAUMATIC, NORMAL INSPECTION, NORMOCEPHALIC - Eye Exam Eye Exam: EOMI, Normal appearance, PERRL Pupil Exam: NORMAL ACCOMODATION, PERRL - GI/Abdominal Exam GI & Abdominal Exam: Normal Bowel Sounds - Rectal Exam Rectal Exam: NORMAL INSPECTION - Neurological Exam Neurological exam: Alert, CN II-XII Intact, Normal Gait, Oriented x3, Reflexes Normal - Psychiatric Exam Psychiatric exam: Normal Affect, Normal Mood - Skin Skin Exam: Dry, Intact, Normal Color, Warm Discharge Plan - Follow Up Plan Condition: FAIR Disposition: HOME/ ROUTINE Patient education suggested?: Yes Instructions: Low Cholesterol, Saturated Fat, and Trans Fat Diet , Low Fiber Diet, Diverticulitis Additional Instructions: discharge today follow up with dr souza will need out pt colonoscopy Referrals: Sugey Souza MD [Primary Care Provider] -
== END 2018-03-11 11:12 | disposition home or self-care (01) | DRG 183 ==
LOC: H.ER 01:30 → H.ERHOLD 05:18 → H.MEDSURG1 09:24
PROVIDERS: ADMIT Internal Medicine Pulmonary Disease; ATTEND Internal Medicine Pulmonary Disease
PROC: 3E0234Z Introduction of Serum, Toxoid and Vaccine into Muscle, Percutaneous Approach (ICD-10-PCS; principal; 2018-03-09)
DX: K57.32 Diverticulitis of large intestine without perforation or abscess without bleeding (principal); E11.9 Type 2 diabetes mellitus without complications; I10 Essential (primary) hypertension; K59.00 Constipation, unspecified; R21 Rash and other nonspecific skin eruption; F17.210 Nicotine dependence, cigarettes, uncomplicated; Z85.828 Personal history of other malignant neoplasm of skin; Z23 Encounter for immunization

== ENCOUNTER 2018-07-29 17:07 | Emergency (ER) | payer MEDICAID, OTHER ==
[2018-07-29 17:19] VITALS: RESP 20
--- NOTE | 2018-07-29 18:02 | RAD ---
Date of service: 07/29/2018 HISTORY: possible admission COMPARISON: Chest radiograph dated 03/09/2018. FINDINGS: LUNGS: No active pulmonary disease. PLEURA: No significant pleural effusion identified, no pneumothorax apparent. CARDIOVASCULAR: No aortic atherosclerotic calcification present. Normal cardiac size. No pulmonary vascular congestion. OSSEOUS STRUCTURES: No significant abnormalities. VISUALIZED UPPER ABDOMEN: Normal. OTHER FINDINGS: None. IMPRESSION: No active disease.
[2018-07-29] MEDS ORDERED: Albuterol-Ipratrop 3 mg / 0.5 (3 ml) UD INH STA (18:23)
[2018-07-29] MEDS ORDERED: Sodium Chloride 0.9% 1,000 ML IV STA (18:23)
[2018-07-29] MEDS ORDERED: Albuterol-Ipratrop 3 mg / 0.5 (3 ml) UD ONE (18:35)
[2018-07-29 18:56] LABS: BASO # 0.1 K/uL (0.0-0.2); BASO % 0.6 % (0.0-2.0); EOS # 0.2 K/uL (0.0-0.7); EOS % 1.9 % (0.0-4.0); HEMOGLOBIN 14.8 g/dL (12.0-18.0); LYMPH # 2.6 K/uL (1.0-4.3); MEAN CORPUSCULAR HEMOGLOBIN 29.4 pg (27.0-31.0); MEAN CORPUSCULAR HGB CONC 33.8 g/dL (33.0-37.0); MEAN PLATELET VOLUME 10.4 fl (7.2-11.7); MONO # 0.7 K/uL (0.0-0.8); MONO % 6.3 % (0.0-10.0); NEUT % 66.2 % (50.0-75.0); RBC 5.03 Mil/uL (4.40-5.90); RED CELL DISTRIBUTION WIDTH 13.7 % (11.5-14.5); WHITE BLOOD COUNT 10.6 K/uL (4.8-10.8)
[2018-07-29 18:57] LABS: BLOOD UREA NITROGEN 13 mg/dl (9-20); CALCIUM 9.6 mg/dL (8.4-10.2); GFR NON-AFRICAN AMERICAN > 60
--- NOTE | 2018-07-29 19:39 | ED PDOC ---
HPI: Chest Pain Time Seen by Provider: 07/29/18 17:34 Chief Complaint (Nursing): Shortness Of Breath Chief Complaint (Provider): Chest pain History Per: Patient History/Exam Limitations: no limitations Onset/Duration Of Symptoms: Days (x3) Current Symptoms Are (Timing): Still Present Quality: Tightness Associated Symptoms: denies: Nausea Additional Complaint(s): Andrzej Reynaga is a 28 year old male, with a past medical history of diabetes and HTN, who presents to the emergency department complaining of right sided chest pain described as tightness and some shortness of breath onset for x3 days. Patient reports going to the dentist on due to dental pain, he was anaesthetized and since then he's had palpitations and right sided chest pain. Patient also reports an abdominal, neck and back pain with coughing. He has been able to eat and drink since the dentist appointment. He reports subject mercedes wheezing but denies any fever, chills, nausea, vomit, diarrhea, headache, weakness or other medical complaints. PMD: None provided. Past Medical History Reviewed: Historical Data, Nursing Documentation, Vital Signs Vital Signs: Last Vital Signs Temp 97.5 F L 07/29/18 17:16 Pulse 91 H 07/29/18 17:16 Resp 20 07/29/18 17:16 BP 127/76 07/29/18 17:16 Pulse Ox 98 07/29/18 17:25 - Medical History PMH: Diabetes (pre), HTN Denies: HIV, Chronic Kidney Disease - Surgical History Surgical History: No Surg Hx - Family History Family History: States: Unknown Family Hx - Social History Current smoker - smoking cessation education provided: Yes (Current some days smoker) Alcohol: Social Drugs: Denies - Home Medications Home Medications: Ambulatory Orders Medication Instructions Recorded RX: Ciprofloxacin 500 mg PO BID #14 [facility]..rec 03/11/18 RX: Metoprolol Tartrate 50 mg PO DAILY #30 tablet 03/11/18 RX: Omeprazole 40 mg PO DAILY #30 capsule. 03/11/18 - Allergies Allergies/Adverse Reactions: Allergies Allergy/AdvReac Type Severity Reaction Status Date / Time sunlight Allergy Severe RASH Uncoded 04/19/16 18:04 Review of Systems ROS Statement: Except As Marked, All Systems Reviewed And Found Negative Constitutional: Negative for: Fever, Chills Cardiovascular: Positive for: Chest Pain (right sided), Palpitations Respiratory: Positive for: Cough (back, neck and abdominal pain w/ cough), Shortness of Breath, Wheezing (subjective) Gastrointestinal: Negative for: Nausea, Vomiting, Diarrhea Neurological: Negative for: Weakness Physical Exam - Reviewed Nursing Documentation Reviewed: Yes Vital Signs Reviewed: Yes - Physical Exam Appears: Positive for: No Acute Distress Head Exam: Positive for: ATRAUMATIC, NORMAL INSPECTION, NORMOCEPHALIC Skin: Positive for: Normal Color, Warm, Dry Eye Exam: Positive for: Normal appearance, EOMI, PERRL Neck: Positive for: Normal, Painless ROM, Supple Cardiovascular/Chest: Positive for: Regular Rate, Rhythm. Negative for: Murmur Respiratory: Positive for: Normal Breath Sounds. Negative for: Respiratory Distress Gastrointestinal/Abdominal: Positive for: Normal Exam, Soft. Negative for: Tenderness, Guarding, Rebound Back: Positive for: Normal Inspection. Negative for: L CVA Tenderness, R CVA Tenderness, Vertebral Tenderness Extremity: Positive for: Normal ROM (upper and lower extremities). Negative for: Tenderness, Deformity, Swelling Neurologic/Psych: Positive for: Alert, Oriented. Negative for: Motor/Sensory Deficits - Laboratory Results Result Diagrams: 07/29/18 18:35 07/29/18 18:35 Lab Results: Troponin I < 0.0120 ng/mL (0.00-0.120) 07/29/18 18:35 - ECG O2 Sat by Pulse Oximetry: 98 (RA) Pulse Ox Interpretation: Normal Medical Decision Making Medical Decision Making: Time: 17:34 Initial Impression: Chest pain, likely musculoskeletal. No supportive evidence for cardiac etiology Initial Plan: --EKG --Duoneb 3 ml INH --NaCl 1,000 ml IV 1,000 mls/hr --Reevaluation 17:58 CXR FINDINGS: LUNGS: No active pulmonary disease. PLEURA: No significant pleural effusion identified, no pneumothorax apparent. CARDIOVASCULAR: No aortic atherosclerotic calcification present. Normal cardiac size. No pulmonary vascular congestion. OSSEOUS STRUCTURES: No significant abnormalities. VISUALIZED UPPER ABDOMEN: Normal. OTHER FINDINGS: None. IMPRESSION: No active disease. Scribe Attestation: Documented by Cooper Mercado, acting as a scribe for Leonor Ely MD Provider Scribe Attestation: All medical record entries made by the Scribe were at my direction and personally dictated by me. I have reviewed the chart and agree that the record accurately reflects my personal performance of the history, physical exam, medical decision making, and the department course for this patient. I have also personally directed, reviewed, and agree with the discharge instructions and disposition. Disposition - Clinical Impression Clinical Impression: Atypical chest pain - Disposition Referrals: [facility] [Outside] Disposition Time: 18:50 Condition: IMPROVED Additional Instructions: Follow up with primary medical doctor. Return to the emergency department if symptoms worsen or if new symptoms develop. Instructions: Chest Pain That Is Not Caused by the Heart (DC) Forms: [employer] (Urdu) Print Language: POLISH
[2018-07-29 22:39] VITALS: BP 120/72; PULSE 86; TEMP 98.1
--- NOTE | 2018-07-30 16:47 | CARD ---
APPROVED REPORT Date of service: 07/29/2018 EKG Measurement Heart [id number] <Conclusion> Normal sinus rhythm LVH with repolarization abnormality Abnormal ECG
--- NOTE | 2018-07-30 23:59 | CARD ---
APPROVED REPORT Date of service: 07/29/2018 EKG Measurement Heart [id number] <Conclusion> Normal sinus rhythm Minimal voltage criteria for LVH, may be normal variant Nonspecific T wave abnormality Prolonged QT Abnormal ECG
[2018-07-31 14:31] VITALS: O2SAT 98
== END 2018-07-29 21:20 | disposition home or self-care (01) ==
LOC: H.ER 17:07
DX: R07.89 Other chest pain (principal); I10 Essential (primary) hypertension; F17.200 Nicotine dependence, unspecified, uncomplicated
CPT/HCPCS: 71045; 80048; 84484; 85025; 93005; 96360; 99284; J7030